=== PATIENT | male | born 1985 | race Caucasian/White ===

== ENCOUNTER 2018-07-26 23:25 | Emergency (ER) | payer SELFPAY ==
[~2018-07-26] VITALS: Ht 170.2 cm; Wt 86.2 kg
[2018-07-26 23:25] VITALS: BP 161/94
--- NOTE | 2018-07-26 23:25 | NUR ---
PT AMBULATED TO CHAIR E. ESCORTED BY P.
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
--- NOTE | 2018-07-26 23:56 | NUR ---
Pt refused x-ray. Dr. Hoskins made aware.
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
[2018-07-27 00:16] VITALS: BP 161/94
== END 2018-07-27 00:16 ==
LOC: MED 23:25
DX: S09.93XA Unspecified injury of face, initial encounter (principal); R04.0 Epistaxis; F10.129 Alcohol abuse with intoxication, unspecified; Z02.89 Encounter for other administrative examinations; V89.2XXA Person injured in unspecified motor-vehicle accident, traffic, initial encounter; Y93.89 Activity, other specified; Y92.89 Other specified places as the place of occurrence of the external cause; Y99.8 Other external cause status
CPT/HCPCS: 99283